=== PATIENT | female | born 1995 | race Caucasian/White ===

== ENCOUNTER 2023-04-08 11:35 | Outpatient (OUT) | payer BC, SELFPAY ==
[2023-04-09 07:10] LABS: Vitamin D, 25-Hydroxy 32.2 ng/mL (30.0-100.0)
[2023-04-11 06:09] LABS: Serotonin, Serum 129 ng/mL (31-207); Vitamin B6, Plasma 17.8 ug/L (3.4-65.2)
== END 2023-04-08 11:36 | disposition home or self-care (01) ==
PROVIDERS: Visit Provider Obstetrics & Gynecology
DX: R10.2 Pelvic and perineal pain (principal)
CPT/HCPCS: 36415; 82306; 82607; 82746; 84207; 84260

== ENCOUNTER 2023-04-14 08:26 | Outpatient (OUT) | payer BC, SELFPAY ==
--- NOTE | 2023-04-14 08:28 | US_ITS ---
[address] [address] Patient Name: SHIVAM JOHNSON MRN: [id number] date: 1995 Sex: F Assigned Patient Location: US Current Patient Location: US Accession/Order Number: [id number] Exam Date: 04/14/2023 08:35 Report Date: 04/14/2023 10:03 At the request of: ONIEL PRO Procedure: US pelvis w/ transvaginal EXAMINATION: US pelvis w/ transvaginal HISTORY: PELVIC PAIN IN FEMALE R10.2 COMPARISON: No relevant comparison available. FINDINGS: The uterus is anteverted. Uterus is normal in size, contour and myometrial echotexture measuring 8.8 x 4.5 x 5.4 cm. The endometrium measures 9.7 mm. Small amount of fluid within the central cavity The right ovary measures 3.5 x 2.4 x 3.3 cm. Normal color and Doppler flow. Multiple anechoic areas, follicles. 1.4 cm area of hyper echogenicity with a hyperechogenic ring, consider a functional cyst. Complex cystic area measuring 1.6 cm. The left ovary measures 2.8 x 2.2 x 2.6 cm. Normal color and Doppler flow. Multiple anechoic areas, the largest measuring 1.6 cm, cysts/follicles Increased vascularity identified in the left adnexa US/US pelvis w/ transvaginal IMPRESSION: Multiple bilateral simple and complex ovarian cysts and follicles measuring up to 1.6 cm on the right Hypervascular left adnexa, consider uterine vein reflux/pelvic vascular congestion Electronically authenticated by: SANDHYA BURNHAM Date: 04/14/2023 10:03
== END 2023-04-14 08:27 | disposition home or self-care (01) ==
LOC: US 08:26
PROVIDERS: Visit Provider Obstetrics & Gynecology
DX: R10.2 Pelvic and perineal pain (principal); N83.292 Other ovarian cyst, left side; N83.291 Other ovarian cyst, right side
CPT/HCPCS: 76830; 76856

== ENCOUNTER 2023-06-02 09:03 | Outpatient (OUT) | payer BC, SELFPAY ==
--- NOTE | 2023-06-02 09:08 | US_ITS ---
[address] [address] Patient Name: SHIVAM JOHNSON MRN: [id number] date: 1995 Sex: F Assigned Patient Location: Current Patient Location: US Accession/Order Number: [id number] Exam Date: 06/02/2023 09:08 Report Date: 06/02/2023 10:21 At the request of: ONIEL PRO Procedure: US pelvis w/ transvaginal EXAMINATION: US pelvis w/ transvaginal HISTORY: PELVIC PAIN COMPARISON: 04/14/2023 FINDINGS: The uterus is normal in size, contour and myometrial echotexture, anteverted, anteflexed. The uterus measures 8.3 x 4.0 x 5.0 cm. No focal myometrial mass. Endometrium measures 10 mm, normal. The right ovary is normal measuring 2.9 x 1.7 x 4.0 cm. Normal follicles. Normal color and Doppler flow. The left ovary is normal measuring 2.8 x 2.4 x 3.0 cm. Normal follicles. Normal color Doppler flow. Multiple dilated left adnexal vessels No free fluid US/US pelvis w/ transvaginal IMPRESSION: Interval resolution of complex right adnexal cyst Stable hypervascular left adnexa suggesting uterine vein reflux Electronically authenticated by: SANDHYA BURNHAM Date: 06/02/2023 10:21
== END 2023-06-02 09:04 | disposition home or self-care (01) ==
LOC: US 09:03
PROVIDERS: Visit Provider Obstetrics & Gynecology
DX: R10.2 Pelvic and perineal pain (principal)
CPT/HCPCS: 76830; 76856